=== PATIENT | female | born 1950 | race Caucasian/White ===

== ENCOUNTER 2018-05-12 06:42 | Day surgery (SDC) | payer OTHER ==
[2018-05-09 12:51] VITALS: BMI 36.6
[2018-05-12] MEDS ORDERED: ROPIVACAINE HCL 0.5% 30ML VIAL ONE (08:33)
[2018-05-12] MEDS ORDERED: MIDAZOLAM HCL 2 MG/2 ML SINGLE DOSE VIAL ONE ×2 (08:33→09:31)
[2018-05-12] MEDS ORDERED: DEXAMETHASONE SOD PHOSPHATE/PF 10 MG/ML SDV ONE (08:33)
[2018-05-12] MEDS ORDERED: BUPIVACAINE HCL/PF 2.5 MG/ML - 30 ML VIAL IJ ONE (09:19)
[2018-05-12] MEDS ORDERED: ONDANSETRON 4 MG/2 ML VIAL ONE (09:27)
[2018-05-12] MEDS ORDERED: ceFAZolin SODIUM 1 GM VIAL ONE (09:27)
[2018-05-12] MEDS ORDERED: DEXAMETHASONE SOD PHOSPHATE 4 MG/1 ML VIAL ONE (09:27)
[2018-05-12 12:36] VITALS: BP 138/55; PULSE 82; TEMP 98
[2018-05-12] MEDS ORDERED: ONDANSETRON 4 MG/2 ML VIAL IVPUSH PRN (13:09)
[2018-05-12] MEDS ORDERED: oxyCODONE HCL 5 MG TABLET PO PRN ×2 (13:09)
[2018-05-12] MEDS ORDERED: LACTATED RINGERS SOLUTION 1,000 ML IV SCH (13:15)
--- NOTE | 2018-05-13 00:15 | OP ---
DATE OF OPERATION: 05/12/2018 LOCATION: [facility]. SURGEON: Golden Martin MD ZINC CHLORIDE OPERATOR: FANTASMA Dent PREOPERATIVE DIAGNOSES: 1. Left shoulder biceps tendon tear. 2. Left shoulder adhesive capsulitis. 3. Left shoulder impingement syndrome. 4. Left shoulder acromioclavicular joint disease. 5. Superior labral tear, anterior and posterior with synovitis, left shoulder. 6. Left long head biceps tendon tear. POSTOPERATIVE DIAGNOSES: 1. Left shoulder biceps tendon tear. 2. Left shoulder adhesive capsulitis. 3. Left shoulder impingement syndrome. 4. Left shoulder acromioclavicular joint disease. 5. Superior labral tear, anterior and posterior with synovitis, left shoulder. 6. Left long head biceps tendon tear. PROCEDURE: 1. Left shoulder arthroscopy with arthroscopic rotator cuff repair. CPT code 59323. 2. Left shoulder arthroscopy with lysis and resection of adhesions. CPT code 56507. 3. Left shoulder arthroscopy with subacromial decompression. CPT code 93083. 4. Left shoulder arthroscopy with resection of distal clavicle acromioclavicular joint. CPT code 72420. 5. Left shoulder arthroscopy with debridement. CPT code 74342. 6. Long head biceps tendon release. CPT code 62214. FINDINGS: 1. Extensive tearing of long head biceps tendon with scarring into the superior labrum, converting a type 1 tear to a type 4 superior labral tear. 2. Anterolateral fraying. 3. Full-thickness supraspinatus rotator cuff tear. 4. Type 2-3 acromion with anterolateral spurring. 5. clavicular joint disease. 6. Thickened scar tissue with adhesions, subacromial space. 7. Excessive synovitis and adhesions, anterior glenohumeral joint. 8. Posterior labral fraying. 9. Central grade 2-3 cartilage injury, glenoid to humerus. REPAIR: Type 2 mattress sutures were placed into the supraspinatus and secured to a bleeding bone bed using a single Mary anchor. Biceps tendon was completely released with debridement down to the superior labrum. PROCEDURE: Informed consent was obtained. The patient was taken to the operating room, where the upper extremity was prepped and draped in a sterile fashion. The shoulder was manipulated for a full range of motion. A posterior incision portal was made and directed to the glenohumeral joint. Under direct visualization, an anterior incision and portal was made. Extensive synovitis, as well as chondral injuries throughout the glenohumeral joint were debrided and removed. Any identified labral injuries, including the superior labral tear, anterior and posterior, and anterior labrum torn portions, were removed as well. The rotator cuff was visualized and noted to have a full-thickness tear. The edges were debrided. The posterior incision portal was redirected to the subacromial space where a lateral incision portal was made. Excessive and thickened scar tissue noted throughout the subacromial space, including bursal and scar tissue, were removed. The type 2 acromion was converted into a flattened type 1 using a bur for subacromial decompression. The distal inferior spur at the distal clavicle was also debrided with the use of an accessory portal in the acromioclavicular joint. The edges of the rotator cuff were identified. Sutures were placed into the rotator cuff and secured using anchors through the greater tuberosity. Prior to securing, a bleeding bed was made using a small bur, creating a bleeding surface of the rotator cuff insertion. The shoulder was then drained, a single suture was placed in all portals, a sterile dressing was placed and the patient was transferred to the recovery room without complication. GOLDEN MARTIN M.D. [id number]
--- NOTE | 2018-05-15 15:27 | PATH ---
Surgical Pathology Report Patient Name: VALENTIN NESS Med. Rec. #: [id number] /Age/Gender: 1950 (Age: 67) / F Account: [id number] Location: [facility] Taken: 05/12/2018 Received: 05/12/2018 Reported: 05/15/2018 Physicians: Golden King M.D. Specimen(s) Received LEFT SHOULDER SHAVINGS Clinical History Left shoulder internal derangement Final Diagnosis SHOULDER, LEFT, ARTHROSCOPIC SHAVINGS: FIBROSYNOVIAL TISSUE AND BONE. Electronically Signed Mariam Marc M.D. Gross Description Received in formalin, labeled "left shoulder shavings," is a 4.0 x 3.8 x 0.3 cm. aggregate of donahue-yellow soft tissue fragments. A office machines sales representative portion is submitted in one cassette. /05/12/2018 saudi05/12/2018
== END 2018-05-12 12:36 | disposition home or self-care (01) ==
LOC: FASU 06:42
PROVIDERS: ATTEND Orthopaedic Surgery
PROC: 0LS24ZZ Reposition Left Shoulder Tendon, Percutaneous Endoscopic Approach (ICD-10-PCS; 2018-05-12)
PROC: 0RNK4ZZ Release Left Shoulder Joint, Percutaneous Endoscopic Approach (ICD-10-PCS; 2018-05-12)
PROC: 0PBB4ZZ Excision of Left Clavicle, Percutaneous Endoscopic Approach (ICD-10-PCS; 2018-05-12)
PROC: 0RBK4ZZ Excision of Left Shoulder Joint, Percutaneous Endoscopic Approach (ICD-10-PCS; 2018-05-12)
PROC: 0LQ24ZZ Repair Left Shoulder Tendon, Percutaneous Endoscopic Approach (ICD-10-PCS; principal; 2018-05-12 09:41)
DX: M75.42 Impingement syndrome of left shoulder (principal); M66.812 Spontaneous rupture of other tendons, left shoulder; M75.02 Adhesive capsulitis of left shoulder; M19.012 Primary osteoarthritis, left shoulder; S43.432A Superior glenoid labrum lesion of left shoulder, initial encounter; X58.XXXA Exposure to other specified factors, initial encounter; Y93.9 Activity, unspecified; Y92.9 Unspecified place or not applicable; M66.822 Spontaneous rupture of other tendons, left upper arm
CPT/HCPCS: 82962; 88304-TC